=== PATIENT | female | born 1980 ===

== ENCOUNTER 2017-03-30 07:55 | Inpatient (IN) | payer OTHER ==
[2017-03-30] MEDS ORDERED: OLIVE OIL 118 ML BTL ONE (09:32)
[2017-03-30] MEDS ORDERED: AMMONIA AROMATIC 1 EACH AMP IH ONE (09:32)
[2017-03-30] MEDS ORDERED: LIDOCAINE 1% 300 MG/30 ML SDV ONE (09:32)
[2017-03-30] MEDS ORDERED: MISOPROSTOL 200 MCG TAB ONE (09:33)
[2017-03-30] MEDS ORDERED: AMPICILLIN SODIUM 2 GM in NS 100 ML IV ONE ×2 (10:03→10:30)
[2017-03-30 10:17] LABS: % IMMATURE GRANULYOCYTES 1.4 % (0.0-1.1); ABSOLUTE IMMATURE GRANULOCYTES 0.11 10^3/uL (0.00-0.10); ADD DIFF? NO; ADD MORPH? NO; ADD SCAN? NO; ATYPICAL LYMPHOCYTE FLAG 20 (0-99); FRAGMENT RBC FLAG 0 (0-99); HEMATOCRIT 33.8 % (38.0-47.0); HEMOGLOBIN 11.5 g/dL (12.6-16.3); LEFT SHIFT FLG 10 (0-99); LIPEMIA HEMOLYSIS FLAG 90 (0-99); MEAN PLATELET VOLUME 11.2 fL (8.7-11.7); PLATELET CLUMPS FLAG 0 (0-99); PLATELET COUNT 144 10^3/uL (150-400); RED BLOOD CELL COUNT 3.38 10^6/uL (4.18-5.33); RED CELL DISTRIBUTION WIDTH 15.1 % (11.5-15.2)
--- NOTE | 2017-03-30 10:37 | GHP ---
[f rep st] PREOP HISTORY AND PHYSICAL DATE OF ADMISSION: 03/30/2017 ADMITTING DIAGNOSIS: Intrauterine at 36 and 4/7 weeks' gestation with spontaneous rupture of membranes and spontaneous labor. HISTORY OF PRESENT ILLNESS: The patient is a 36-year-old 3, para 2-0-0-2, with a last menst rual period of 07/17/2016 and an EDC of 04/23/2017 making her 36 and 4/7 weeks' gestation. She pres ented to Labor and Delivery complaining of increased contractions, loss of her mucous plug, and an i ncreased gush of fluid at 5:20 this morning and has had increased contractions for several days that were getting intense this morning lasting every 2-4 minutes. On presentation to Labor and Delivery , heart tones were 130s, reactive, moderate variability, category 1. She was salma ever y 3-4 minutes. Cervical exam was unchanged. She was 2 cm, 70%, and posterior. An AmniSure was don e, and it was found to be positive, so she was diagnosed with spontaneous rupture of the membranes a nd early labor. Patient has had all of her care at [facility] with Dr. Guicho lorenzo. She had a GBS done earlier this week, and results are still pending, and [facility] with an appointment scheduled for walter burdick. PAST OBSTETRICAL HISTORY: In 2008, she had a vaginal delivery of a viable male, 8 pounds 10 ounces, uncomplicated, and in 2012 a viable female, 8 pounds, 39 weeks, spontaneous labor with both babies, and this is her 3rd . This course has been uncomplicated. She declined any gene tic screening tests. She has had normal ultrasounds in this . Most recent ultrasound on 0 03/28/2017 at 36 weeks, baby was estimated weight of 3118 g, which was consistent with dates, a nd she had a normal STEPHANIE. She has no past medical history or significant past surgical history. She has normal menstrual cycles. LABS: She is B positive, antibody negative, rubella immune, hepatitis negative, HIV negative, gonor danyelle and chlamydia negative. TSH was normal at 0.9. Vitamin D was normal. 1 hour GTT 99. GBS is still pending. FAMILY HISTORY: Nonsignificant. REVIEW OF SYSTEMS: Negative except for as above. OBJECTIVE: VITAL SIGNS: Today, she is afebrile. Vital signs are stable. heart tones 130s, reactive, moderate variability, category 1. She is salma every 3-4 minutes. PELVIC: Cervix per the nurse's exam was 2, 75%, -2, and posterior. AmniSure was positive. ASSESSMENT/PLAN: A 36-year-old 3, para 2-0-0-2, at 36 and 4/7 weeks' gestation with spontan eous rupture of the membranes and early spontaneous labor. We will admit the patient for active lab or management. Begin ampicillin for GBS unknown and status. I will reassess her cervix in a couple hours and see if she has made change and augment with Pitocin if she is not making spontane ous progress. /[id number]/MODL
--- NOTE | 2017-03-30 12:28 | OBPROG ---
OBG Labor Progress Note Assessment/Plan: Assessment: 36 y/o @ 36 4/7 weeks with SROM and early labor. Plan: AROM forebag today to see if that augments contractions. Will re check in 2 hours. status reassuring. 03/30/17 12:26 Subjective: Pt is having contractions but they are not strong or regular. Objective: 03/30/17 10:00 Patient ABO/Rh B POSITIVE 03/30/17 10:00 - SVE Dilation (cm): 3 Effacement (%): 80 Station: -2 [place] Current Contraction Pattern: Irregular FHR (bpm): 130 FHR Pattern Variability: Moderate FHR Category: 1 Membranes: AROM Oxytocin Orders Assessment - Pre-Induction/Augmentation Assessment Gestational Age: 36 week(s) and 4 day(s) ICD10 Worksheet Patient Problems: Problems Problem Status Onset premature rupture of membranes (PPROM) with onset of labor after 24 hours of rupture in first trimester, antepartum Acute - ICD10 Problem Qualifiers (1) premature rupture of membranes (PPROM) with onset of labor after 24 hours of rupture in first trimester, antepartum
[2017-03-30] MEDS ORDERED: ONDANSETRON 4 MG/2 ML VIAL IVP PRN (13:06)
[2017-03-30] MEDS: AMPICILLIN SODIUM 1 GM in NS 100 ML IV SCH ×3 (13:45→22:57)
[2017-03-30] MEDS ORDERED: OXYTOCIN/RINGERS LACTATE 20 UNIT/1,000 ML BAG IV ONE (15:46)
[2017-03-30] MEDS ORDERED: ACETAMINOPHEN 325 MG TAB PO PRN (16:04)
[2017-03-30] MEDS ORDERED: SIMETHICONE 80 MG TAB CHEW PO PRN (16:04)
[2017-03-30] MEDS ORDERED: HYDROCORTISONE 0.5% CREAM TP PRN (16:04)
[2017-03-30] MEDS ORDERED: DOCUSATE SODIUM 100 MG CAP PO PRN (16:04)
[2017-03-30] MEDS ORDERED: HYDROCODONE/APAP 5/325 TAB PO PRN (16:04)
--- NOTE | 2017-03-30 16:10 | OBDEL ---
Info Type: Vaginal GBS+: Yes (unknown status secondary to pre-term) Antibiotic Used for + GBS: Ampicillin, Vancomycin Number of Antibiotic Doses Given: 2 Indications for Delivery: Spontaneous Labor, PPROM Vaginal Delivery - Labor and Delivery Onset of Contractions Date: 03/30/17 Onset of Contractions Time: 13:03 Onset of Contractions Type: Spontaneous Rupture of Membranes Date: 03/30/17 Rupture of Membranes Time: 05:20 Rupture of Membranes Type: Spontaneous Amniotic Fluid Color: Clear Dilation Complete Date: 03/30/17 Dilation Complete Time: 15:30 Placenta Delivery Date: 03/30/17 Placenta Delivery Time: 15:48 Total Hours of Labor: 2 Non-surgical Procedures: Amniotomy (of forebag) Laceration: 1st Degree Repair: 2-0, Vicryl Vaginal Sponge Count Correct: Yes Vaginal Needle Count Correct: Yes Vaginal Sweep Performed: Yes EBL: 250 Delivery Events: Other (Specify) (PPROM @ 36 4/7 weeks, expectant management of labor except AROM forebag) - Medications Labor Augmentation/Induction Methods Used: None [place] Data [place] Delivery Date: 03/30/17 Delivery Time: 15:44 ELENO: 04/25/17 Gestational Age: 36 week(s) and 2 day(s) Sex of : Female Score (1 Min): 8 Score (5 Min): 9 ICD10 Worksheet Patient Problems: Problems Problem Status Onset premature rupture of membranes (PPROM) with onset of labor after 24 hours of rupture in first trimester, antepartum Acute - ICD10 Problem Qualifiers (1) premature rupture of membranes (PPROM) with onset of labor after 24 hours of rupture in first trimester, antepartum
[2017-03-30] MEDS: IBUPROFEN 600 MG TAB PO PRN ×2 (16:19→22:19)
[2017-03-31] MEDS: AMPICILLIN SODIUM 1 GM in NS 100 ML IV SCH ×4 (03:37→17:26)
[2017-03-31] MEDS: IBUPROFEN 600 MG TAB PO PRN ×3 (04:54→19:15)
[2017-03-31 08:39] VITALS: PULSE 72
[2017-03-31 15:57] VITALS: BP 123/73; RESP 17; TEMP 98.5; O2SAT 95
--- NOTE | 2017-03-31 18:35 | OBPP ---
Progress Note Assessment/Plan: Assessment: PPD 1 s/p of 36+wk infant Plan: d/C home, iron for mild anemia 03/31/17 18:32 Subjective: Pt doing well. Baby has been latching well. Has f/u with FP in [place] tomorrow. Bld is light. Used [place] for cramps once last noc - ok today with ibu. Desires D/C Objective: 03/30/17 10:00 Patient ABO/Rh B POSITIVE 03/30/17 10:00 Temp Pulse Resp BP Pulse Ox 36.9 C 72 17 123/73 H 95 03/31/17 15:35 03/31/17 15:35 03/31/17 15:35 03/31/17 15:35 03/31/17 15:35 Uterine Position/Fundal Height: Umbilicus -2 Uterine Tone: Firm Physical Exam - Physical Exam General Appearance: WD/WN, no apparent distress Abdomen: non-tender, soft, other (Normal lochia) Extremities: non-tender, pedal edema (mild) Skin: normal color, warm/dry Neuro/Psych: normal mood/affect
--- NOTE | 2017-03-31 18:42 | OBGCSDC ---
General Delivery Information - General Info : 3 Para: 3 Delivery Physician/CNM: Oriana Olson Admission Date: 03/30/17 Labs: Patient ABO/Rh B POSITIVE 03/30/17 10:00 Hct 33.8 % (38.0-47.0) L 03/30/17 10:00 Vaginal - Diagnosis Labor: Spontaneous Presentation at Delivery: Vertex Rupture of Membranes Type: Spontaneous Amniotic Fluid Color: Clear Laceration: 1st Degree Repair: 2-0, Vicryl Delivery Events: Other (Specify) (PPROM @ 36 4/7 weeks, expectant management of labor except AROM forebag) - Operations/Procedures Non-surgical Procedures: Amniotomy (of forebag) L&D Analgesia/Anesthesia Type: Local - Hospital Course Antepartum: care with Dr Sewell in [place]. Transfer due to insurance not covering [facility]. Intrapartum: admit with rapid progress and delivery. PPROM and abx given as no GBS results available and status. : doing well and occas [place] for cramps. BF without probs - Delivery Non-surgical Procedures: Amniotomy (of forebag) L&D Analgesia/Anesthesia Type: Local [place] Data [place] Delivery Date: 03/30/17 Delivery Time: 15:44 ELENO: 04/23/17 Gestational Age: 36 week(s) and 5 day(s) Sex of : Female Weight (gm): 3698 kg Score (1 Min): 8 Score (5 Min): 9 Discharge Information - Discharge Information Discharge Medications: Hydrocodone (5 given on script), Ibuprofen, Vitamins Condition: Good Instruction/Follow Up: Six Weeks Discharge Physician/CNM: Grazyna Marie
== END 2017-03-31 19:20 | disposition home or self-care (01) | DRG 775 ==
LOC: FLD 07:55 → FOB 18:48
PROVIDERS: ADMIT Obstetrics & Gynecology; ATTEND Obstetrics & Gynecology
PROC: 10E0XZZ Delivery of Products of Conception, External Approach (ICD-10-PCS; principal; 2017-03-30)
PROC: 0HQ9XZZ Repair Perineum Skin, External Approach (ICD-10-PCS; principal; 2017-03-30)
PROC: 10907ZC Drainage of Amniotic Fluid, Therapeutic from Products of Conception, Via Natural or Artificial Opening (ICD-10-PCS; 2017-03-30)
DX: O60.14X0 Preterm labor third trimester with preterm delivery third trimester, not applicable or unspecified (principal); O70.0 First degree perineal laceration during delivery; O09.523 Supervision of elderly multigravida, third trimester; Z3A.36 36 weeks gestation of pregnancy; Z37.0 Single live birth
CPT/HCPCS: J0290; J2405; J2590